=== PATIENT | female | born 1965 | race Caucasian/White ===

== ENCOUNTER → 2017-02-16 | Outpatient (CLI) | payer OTHER ==
--- NOTE | 2017-02-16 16:21 | RADIOLOGY REPORT PS360 ---
US PELVIS-TRANSVAGINAL ONLY HISTORY: Heavy uterine bleeding MENMETRORRHAGIA ORDERING PHYSICIAN: Sharla Wright MD PATIENT AGE: 51 years COMPARISON: None FINDINGS: The uterus is somewhat bulky measuring 8.4 x 5.4 x 5.6 cm with a combined endometrial thickness of 8 mm nabothian cyst is present. No obvious uterine mass. The left ovary is 4 x 3.4 cm and contains a 3 x 2.5 cm cyst. The right ovary is 5. A 5 cm and contains a 5 x 4.4 cm cyst. The cyst do not containing internal septations or thickened cloud. No cul-de-sac fluid evident. IMPRESSION: 1. Bilateral ovarian cysts measuring up to 5 cm on the right and 3 cm on the left. 2. Endometrial thickness upper limits of normal
== END ==
LOC: RAD 13:19
DX: N92.1 Excessive and frequent menstruation with irregular cycle (principal)

== ENCOUNTER → 2017-02-18 | Outpatient (CLI) | payer OTHER | LOC: LAB 11:04 | DX: N92.0 Excessive and frequent menstruation with regular cycle (principal); N85.2 Hypertrophy of uterus ==

== ENCOUNTER 2017-03-22 06:09 | Observation (INO) | payer OTHER ==
[2017-03-22] VITALS (15 sets, daily range): BP systolic 104–163; BP diastolic 53–87
[~2017-03-22] VITALS: Ht 154.9 cm; Wt 113.4 kg
--- OUTSIDE RECORDS SUMMARY | 2017-03-22 06:22 | External Medical Summary Rpt | CCD ---
Author Author , MIGUEL ANGEL Organization MIGUEL ANGEL Address Unknown Phone miguel .Invisible Purpose Continuity of Care Document - 02-18-2017 through 2016 Results Labs Lab Lab Date Result Refere Interp Status Commen Order Detail nces retati t Range on Urinalysis dipstick W Reflex Microscopic panel in Urine (03-21-2017 10:15) Bacteri 2+ O complet a 017 ed [Presen 10:15 ce] in Urine sedimen t by Light microsc opy Erythro OCC 0 complet cytes 017 ed [Presen 10:15 ce] in Urine sedimen t by Light microsc opy Epithel 10-20 0#/hp complet ial 017 f - ed cells.s 10:15 5#/hp quamous f [Presen ce] in Urine sedimen t by Microsc opy high power field Urinalysis dipstick W Reflex Microscopic panel in Urine (03-21-2017 10:15) Appeara SL CLEAR complet nce of 017 CLOUDY ed Urine 10:15 Bilirub NEGATIV NEG complet in 017 E ed [Presen 10:15 ce] in Urine by Test strip Erythro TRACE-L NEG complet cytes 017 YSED ed [Presen 10:15 ce] in Urine Color YELLOW YELLOW complet of 017 ed Urine 10:15 Ketones NEGATIV NEG complet 017 E ed [Presen 10:15 ce] in Urine by Automat ed test strip Mucus NEGATIV NEG complet [Presen 017 E ed ce] in 10:15 Urine sedimen t by Light microsc opy Nitrite NEGATIV NEG complet 017 E ed [Presen 10:15 ce] in Urine by Test strip Urobili 0.2 NEG complet nogen 017 ed [Presen 10:15 ce] in Urine by Test strip
--- OUTSIDE RECORDS SUMMARY | 2017-03-22 06:22 | External Medical Summary Rpt | CCD ---
Author Author [facility] Organization [facility] Address Unknown Phone Unavailable Purpose Continuity of Care Document - through 2016
--- OUTSIDE RECORDS SUMMARY | 2017-03-22 06:22 | External Medical Summary Rpt | CCD ---
Author Author , MIGUEL ANGEL Organization MIGUEL ANGEL Address Unknown Phone [email or web address] Purpose Continuity of Care Document - 02-18-2017 [...]
--- OUTSIDE RECORDS SUMMARY | 2017-03-22 06:22 | External Medical Summary Rpt | CCD ---
Demographics Preferred Language Upper Sorbian Marital Status Unknown Quaker Affiliation Unknown Race Unknown Ethnic Group Unknown Author Author , MIGUEL ANGEL MICHELLE Address Unknown Phone miguel Immunization No patient found.
--- OUTSIDE RECORDS SUMMARY | 2017-03-22 06:22 | External Medical Summary Rpt | CCD ---
Demographics Preferred Language German Marital Status Unknown Episcopalian Affiliation Unknown Race Unknown Ethnic Group Unknown Author Author , MIGUEL ANGEL MICHELLE Address Unknown Phone miguel Immunization No patient found.
--- OUTSIDE RECORDS SUMMARY | 2017-03-22 06:23 | External Medical Summary Rpt ---
Author Author MIGUEL ANGEL Stewart, M[employer]EL ANGEL [employer] Organization [employer] Address Unknown Phone Unavailable Results Comprehensive metabolic 2000 panel in Serum or Plasma Observa Value Referen Units Interpr Notes Date tion ce etation Range Albumin/G 1.1 - 1.8 No Normal No Mar 21 lobulin informati informati 2017 [Mass on in on in 10:15 AM ratio] in source source Serum or data data Plasma Albumin 3.4 - 5.0 gm/dL Normal No Mar 21 [Mass/vol informati 2016 ume] in on in 10:15 AM Serum or source Plasma data Alkaline 46 - 116 U/L Normal No Mar 21 phosphata informati 2017 se on in 10:15 AM [Enzymati source c data activity/ volume] in Serum or Plasma Bilirubin 0.2 - 1.0 mg/dL Normal No Mar 21 .total informati 2016 [Mass/vol on in 10:15 AM ume] in source Serum or data Plasma Urea 7 - 18 mg/dL Normal No Mar 21 nitrogen informati 2017 [Mass/vol on in 10:15 AM ume] in source Serum or data Plasma Calcium 8.5 - mg/dL Low No Mar 21 [Mass/vol 10.1 informati 2016 ume] in on in 10:15 AM Serum or source Plasma data Chloride 98 - 107 mmoL/L Normal No Mar 21 [Moles/vo informati 2016 lume] in on in 10:15 AM Serum or source Plasma data Carbon 21.0 - mmoL/L Normal No Mar 21 dioxide, 32.0 informati 2016 total on in 10:15 AM [Moles/vo source lume] in data Serum or Plasma Creatinin 0.55 - mg/dL Normal No Mar 21 e 1.02 informati 2017 [Mass/vol on in 10:15 AM ume] in source Serum or data Plasma Estimated 59- ML/MIN No REFERENCE Oct 30 informati RANGE: 2017 glomerula on in >60 10:15 AM r source ML/MIN/1. filtratio data 73 SQUARE n rate METERSIf (GF this patient is -A merican, then multiply theresult by 1.210. Globulin 1.3 - 3.2 gm/dL Normal No Mar 21 [Mass/vol informati 2016 ume] in on in 10:15 AM Serum source data Glucose 74 - 106 mg/dL Normal No Mar 21 [Mass/vol informati 2016 ume] in on in 10:15 AM Serum or source Plasma data Potassium 3.5 - 5.1 mmoL/L Normal No Mar 212016 [Moles/vo on in 10:15 AM lume] in source Serum or data Plasma Sodium 136 - 145 mmoL/L Normal No Mar 21 [Moles/vo informati 2016 lume] in on in 10:15 AM Serum or source Plasma data Aspartate 15 - 37 U/L Normal No Mar 212016 aminotran on in 10:15 AM sferase source [Enzymati data c activity/ volume] in Serum or Plasma Alanine 12 - 78 U/L Normal No Mar 21 aminotran 2016 sferase on in 10:15 AM [Enzymati source c data activity/ volume] in Serum or Plasma Protein 6.4 - 8.2 gm/dL Normal No Mar 21 [Mass/vol informati 2016 ume] in on in 10:15 AM Serum or source Plasma data CBC W Auto Differential panel in Blood Observa Value Referen Units Interpr Notes Date tion ce etation Range Basophils 0 - 0.2 K/MM3 Normal No Mar 212016 [#/volume on in 10:15 AM ] in source Blood by data Automated count Basophils 0.1 - 2.0 % Normal No Mar 212016 leukocyte on in 10:15 AM s in source Blood by data Automated count Eosinophi 0.0 - 0.4 K/mm3 Normal No Mar 21 ls ati 2016 [#/volume on in 10:15 AM ] in source Blood by data Automated count Eosinophi 0.1 - % Normal No Mar 21 ls/100 12.0 inform2016 leukocyte on in 10:15 AM s in source Blood by data Automated count Granulocy 1.8 - 7.8 K/mm3 Normal No Mar 21 karo inform2016 [#/volume on in 10:15 AM ] in source Blood by data Automated count Granulocy 37.0 - % Normal No Mar 21 karo/100 80.0 inform2016 leukocyte on in 10:15 AM s in source Blood by data Automated count Hematocri 37.0 - % Normal No Mar 21 t [Volume 47.0 2016 on in 10:15 AM Fraction] source of Blood data Hemoglobi 12.2 - g/dL Normal No Mar 21 n 16.2 informati 2016 [Mass/vol on in 10:15 AM ume] in source Blood data Lymphocyt 0.7 - 4.5 K/mm3 Normal No Mar 21 es 2016 [#/volume on in 10:15 AM ] in source Unspecifi data ed specimen by Automated count Lymphocyt 10 - 50.0 % Normal No Mar 21 es inform2016 [#/volume on in 10:15 AM ] in source Unspecifi data ed specimen by Automated count Erythrocy 27 - 31.2 pg Normal No Mar 21 te mean 2016 corpuscul on in 10:15 AM ar source hemoglobi data n [Entitic mass] Erythrocy 31.8 - g/dl Low No Mar 21 te mean 35.4 2016 corpuscul on in 10:15 AM ar source hemoglobi data n concentra tion [Mass/vol ume] by Automated count Erythrocy 82.2 - fl Normal No Mar 21 te mean 97.8 inform2016 corpuscul on in 10:15 AM ar volume source [Entitic data volume] by Automated count Monocytes 0.1 - 1.0 K/mm3 Normal No Mar 212016 [#/volume on in 10:15 AM ] in source Blood by data Automated count Monocytes 1.7 - 9.3 % Normal No Mar 21 /100 2016 leukocyte on in 10:15 AM s in source Blood by data Automated count Platelet 7.4 - fl Normal No Mar 21 mean 10.4 2016 volume on in 10:15 AM [Entitic source volume] data in Blood by Automated count Platelets 142 - 424 K/mm3 Normal No Mar 212016 [#/volume on in 10:15 AM ] in source Blood data Erythrocy 4.2 - 5.4 M/mm3 Normal No Mar 21 karo inform2016 [#/volume on in 10:15 AM ] in source Amniotic data fluid Erythrocy 11.5 - % Normal No Mar 21 te 17.5 2016 distribut on in 10:15 AM ion width source [Entitic data volume] by Automated count Leukocyte 4.8 - K/MM3 Normal No Feb 30 s 10.8 informati 2017 [#/volume on in 10:15 AM ] in source Blood data Urinalysis dipstick W Reflex Microscopic panel in Urine Observa Value Referen Units Interpr Notes Date tion ce etation Range Appeara SL CLEAR No No No Mar 21 nce of CLOUDY informa informa informa 2017 Urine tion in tion in tion in 10:15 source source source AM data data data Bacteri 2+ O No No No Mar 21 a informa informa informa 2016 [Presen tion in tion in tion in 10:15 ce] in source source source AM Urine data data data sedimen t by Light microsc opy Bilirub NEGATIV NEG No No No Mar 21 in E informa informa informa 2016 [Presen tion in tion in tion in 10:15 ce] in source source source AM Urine data data data by Test strip Erythro TRACE-L NEG No No No Mar 21 cytes YSED informa informa informa 2016 [Presen tion in tion in tion in 10:15 ce] in source source source AM Urine data data data Color YELLOW YELLOW No No No Mar 21 of informa informa informa 2016 Urine tion in tion in tion in 10:15 source source source AM data data data Glucose NEG No No No Mar 21 [Mass/vol informati informati informati 2017 ume] in on in on in on in 10:15 AM Urine by source source source Test data data data strip Ketones NEGATIV NEG mg/dL No No Mar 21 E informa informa 2016 [Presen tion in tion in 10:15 ce] in source source AM Urine data data by Automat ed test strip Mucus NEGATIV NEG No No No Mar 21 [Presen E informa informa informa 2016 ce] in tion in tion in tion in 10:15 Urine source source source AM sedimen data data data t by Light microsc opy Nitrite NEGATIV NEG No No No Mar 21 E informa informa informa 2016 [Presen tion in tion in tion in 10:15 ce] in source source source AM Urine data data data by Test strip pH of 5.0 - 8.5 No Normal No Mar 21 Urine informati informati 2017 on in on in 10:15 AM source source data data Protein NEG mg/dL No No Mar 21 [Mass/vol informati informati 2017 ume] in on in on in 10:15 AM Urine by source source Automated data data test strip Erythro OCC 0 rbc/hpf No No Mar 21 cytes informa informa 2017 [Presen tion in tion in 10:15 ce] in source source AM Urine data data sedimen t by Light microsc opy Specific 1.005 - No Normal No Mar 21 gravity 1.030 informati informati 2017 of Urine on in on in 10:15 AM source source data data Epithel 10-20 0 - 5 #/hpf No No Mar 21 ial informa informa 2017 cells.s tion in tion in 10:15 quamous source source AM data data [Presen ce] in Urine sedimen t by Microsc opy high power field Urobili 0.2 NEG E.U./dL No No Mar 21 nogen informa informa 2016 [Presen tion in tion in 10:15 ce] in source source AM Urine data data by Test strip Leukocyte O wbc/hpf No No Mar 21 s informati informati 2017 [#/volume on in on in 10:15 AM ] in source source Urine data data Urinalysis dipstick W Reflex Microscopic panel in Urine Observa Value Referen Units Interpr Notes Date tion ce etation Range Appeara SL CLEAR No No No Mar 21 nce of CLOUDY informa informa informa 2017 Urine tion in tion in tion in 10:15 source source source AM data data data Bilirub NEGATIV NEG No No No Mar 21 in E informa informa informa 2016 [Presen tion in tion in tion in 10:15 ce] in source source source AM Urine data data data by Test strip Erythro TRACE-L NEG No No No Mar 21 cytes YSED informa informa informa 2016 [Presen tion in tion in tion in 10:15 ce] in source source source AM Urine data data data Color YELLOW YELLOW No No No Mar 21 of informa informa informa 2017 Urine tion in tion in tion in 10:15 source source source AM data data data Glucose NEG No No No Mar 21 [Mass/vol informati informati informati 2017 ume] in on in on in on in 10:15 AM Urine by source source source Test data data data strip Ketones NEGATIV NEG mg/dL No No Mar 21 E informa informa 2016 [Presen tion in tion in 10:15 ce] in source source AM Urine data data by Automat ed test strip Mucus NEGATIV NEG No No No Mar 21 [Presen E informa informa informa 2016 ce] in tion in tion in tion in 10:15 Urine source source source AM sedimen data data data t by Light microsc opy Nitrite NEGATIV NEG No No No Mar 21 E informa informa informa 2016 [Presen tion in tion in tion in 10:15 ce] in source source source AM Urine data data data by Test strip pH of 5.0 - 8.5 No Normal No Mar 21 Urine informati informati 2017 on in on in 10:15 AM source source data data Protein NEG mg/dL No No Mar 21 [Mass/vol informati informati 2017 ume] in on in on in 10:15 AM Urine by source source Automated data data test strip Specific 1.005 - No Normal No Mar 21 gravity 1.030 informati informati 2016 of Urine on in on in 10:15 AM source source data data Urobili 0.2 NEG E.U./dL No No Mar 21 nogen informa informa 2016 [Presen tion in tion in 10:15 ce] in source source AM Urine data data by Test strip Cancer Ag 125 [Units/volume] in Serum or Plasma Observa Value Referen Units Interpr Notes Date tion ce etation Range Cancer Ag 0.0 - U/mL No Nilsa Feb 18 125 38.1 informati ECLIA 2017 [Units/vo on in methodolo 11:06 AM lume] in source gyPerform Serum or data ed at: Plasma CB - [facility] [place] [id number] [place] [id number] Search Engine Optimization Specialist: Miguel Caceres PhD, Phone: [phone]
--- OUTSIDE RECORDS SUMMARY | 2017-03-22 06:23 | External Medical Summary Rpt ---
[...] data ed at: Plasma CB - [facility] [place] [address] [place] [id number] [employer] Sales Representative: Miguel Caceres PhD, Phone: [phone]
--- NOTE | 2017-03-22 08:37 | Operative Note ---
Procedure/Operative Record Date of Procedure: 03/22/17 Referring physician: Dr. Salas Pre-op diagnosis: Dysfunctional uterine bleeding Post-op diagnosis: 1. Dysfunctional uterine bleeding. 2. Bilateral ovarian cysts Procedure performed: Total vaginal hysterectomy, bilateral salpingo-oophorectomy. Surgeon: Mario Gomez Pottery Decoration Designer(s): EMIGDIO Pike Anesthesia: Gen., GRADING MACHINE OPERATOR Gabriela Indications: Dysfunctional uterine bleeding Description of procedure: After the patient was prepped and draped in usual fashion and general anesthesia was administered, examination under anesthesia revealed a boggy anteverted uterus, with no palpable adnexal masses. A weighted speculum was placed within the posterior fourchette of the vagina, and the cervix was grasped with a double -tooth tenaculum, and retracted toward the introitus. The cervix was circumcised with a knife, and the vaginal mucosa was sharply and bluntly dissected free. A posterior colpotomy incision was made with Brandon scissors, and the long lip of the weighted speculum was placed within the posterior peritoneum. The uterosacral ligaments on either side were Nathalia clamped, cut, and Nathalia sutured with #1 Vicryl, as were the cardinal ligaments and uterine vessels. The peritoneum was entered anteriorly with Brandon scissors, and a long right angle retractor was placed within it. The uterus was flipped anteriorly, and the ovarian pedicles were crossclamped and cut, thus removing the boggy uterine specimen. These pedicles were Nathalia sutured, and then free tied with #1 Vicryl. The RIGHT ovary contained a 6 cm thin-walled clear cyst, and the LEFT ovary contained a similar cyst of 4 cm. Each adnexa was grasped with a [place] clamp, and the infundibulopelvic ligament on either side was Nathalia clamped, cut, and Nathalia sutured with #1 Vicryl, thus removing both adnexa. These pedicles were Nathalia sutured with #1 Vicryl, and then free tied with #1 Vicryl. There was no undue bleeding. The posterior vaginal cuff was run and locked with #1 Vicryl, to include the uterosacral ligament pedicles for vaginal support, in a Curiel fashion, to reduce the enterocele. Interior peritoneum was grasped with a long Allis clamp, and closed with a running pursestring suture of 0 Vicryl, and pulled tight. The vaginal cuff was closed with an anteroposterior running locked suture of #1 Vicryl. The urine was clear in the Valdez catheter. The sponge and needle counts correct. The estimated blood loss was 300 mL. The patient tolerated the procedure well, was taken to PACU in excellent condition. EBL (ml): 300 Complications: None Specimens: Uterus, both adnexa. at 0837
--- NOTE | 2017-03-22 08:45 | Anesthesia Record ---
Anesthesia Record Part I Total IV fluids: 1000 EBL (ml): 25 Urine Output: 30 B/P: 138/78 % SaO2: 95 Pulse: 65 Resps: 16 Temp: 97.0 Patient is: Drowsy, Mask O2, Stable Stable to PACU at: 0842 at 0845
--- NOTE | 2017-03-22 08:46 | Anesthesia Record ---
Anesthesia Record Part II Discharge time: 911 Destination: OB PACU nurse assessment review? Yes Patient is: Stable Anesthesia complications? No at 0846
[2017-03-22 09:12] LABS: URINE BILIRUBIN - DIPSTICK NEGATIVE (NEG); URINE BLOOD TRACE-LYSED (NEG)
[2017-03-22 10:42] LABS: HEMOGLOBIN 12.7 g/dL (12.2-16.2)
[2017-03-22] MEDS ORDERED: PRILOSEC OTC20 MG PO (11:21)
[2017-03-22] MEDS ORDERED: XANAX 0.25MG0.25 MG PO (11:22)
[2017-03-22] MEDS ORDERED: NEURONTIN100 MG OR (11:22)
--- NOTE | 2017-03-22 12:10 | PHARMACY CLINIC NOTE ---
Patient Demographics Patient Demographics Admission date: 03/22/17 Date: 03/22/17 Time: 1209 Allergies Coded Allergies: nadolol (From [facility]) (Intermediate, I-HIVES 03/22/17) HEIGHT- FT: 5 IN: 1.00 K.400 VTE General Information Labs: Laboratory Tests 03/22 1000 Hematology Hgb (12.2 - 16.2 g/dL) 12.7 Hct (37.0 - 47.0 %) 41.3 Disclaimer The following section includes nursing documentation that has been pulled in for pharmacy review. Patient's VTE score: 4 Patient's VTE Risk: LOW RISK VTE prophylaxis NQF 0371 VTE prophylaxis ordered? Yes Type of prophylaxis/treatment: ICD, Lovenox at 1207
[2017-03-22 12:45] LABS: URINE BILIRUBIN - DIPSTICK NEGATIVE (NEG); URINE BLOOD NEGATIVE (NEG)
--- NOTE | 2017-03-22 12:53 | ACUTE CARE PROGRESS NOTE (QUA) ---
Progress Notes Subjective Date 03/22/17 Time 1252 Note This is day of surgery. The patient is afebrile. Vital signs stable. Abdomen soft. Pain seems under control. Urine output is good. Impression: Stable. Assessment/Plan This inpt stay is expected to cross 2 MNs from start of care No at 1251
[2017-03-22 13:27] LABS: URINE SQUAMOUS CELLS 20-50 #/hpf (0-5)
[2017-03-23 00:20] VITALS: BP 104/53
[2017-03-23 03:28] VITALS: BP 129/65
--- NOTE | 2017-03-23 05:51 | ACUTE CARE PROGRESS NOTE (QUA) ---
Progress Notes Subjective Date 03/23/17 Time 0550 Note This is postop day number 1. Patient is afebrile. Vital signs stable. Abdomen soft. Urine output good. Hemoglobin 12.7 g. Plan is to discontinue her Valdez and discharge if she voids well. Assessment/Plan This inpt stay is expected to cross 2 MNs from start of care No at 0550
[2017-03-23] MEDS ORDERED: DILAUDID4 MG PO (05:53)
--- NOTE | 2017-03-23 05:57 | DISCHARGE SUMMARY STANDARD ---
Discharge Summary Date of admission: 03/22/17 Date of discharge: 03/23/17 Patient condition: Stable Discharge diagnosis (es): 1. Dysfunctional uterine bleeding. 2. Bilateral ovarian cysts. Hospital course: This 51-year-old white female was admitted for definitive treatment of the above diagnoses. On the date of admission, she was taken to the operating room, where she underwent a total vaginal hysterectomy, with bilateral salpingo-oophorectomy (bilateral adnexal cysts were encountered), without complications. She received Delestrogen 30 mg IM in PACU. Postoperatively, the patient has done well. She is eating and ambulating, and passing flatus. Her abdomen is soft. Her urine output has been good. Her Valdez catheter has been removed. Assuming that she can void well, she will be discharged today. Her hemoglobin is 12.7 g. She is not a smoker. She is given appropriate instructions as to diet and exercise, and she is to return the office in 2 weeks for follow-up. at 4540
[2017-03-23 11:08] VITALS: BP 105/56
== END 2017-03-23 11:15 | disposition home or self-care (01) ==
LOC: SDC 06:09 → OB 06:20 → SDC 06:20 → OB 09:30
PROVIDERS: Obstetrics & Gynecology
PROC: 0UT77ZZ Resection of Bilateral Fallopian Tubes, Via Natural or Artificial Opening (ICD-10-PCS; principal; 2017-03-22 07:30)
PROC: 0UT27ZZ Resection of Bilateral Ovaries, Via Natural or Artificial Opening (ICD-10-PCS; principal; 2017-03-22 07:30)
PROC: 0UT97ZZ Resection of Uterus, Via Natural or Artificial Opening (ICD-10-PCS; principal; 2017-03-22 07:30)
DX: N93.8 Other specified abnormal uterine and vaginal bleeding (principal); N83.202 Unspecified ovarian cyst, left side; N83.201 Unspecified ovarian cyst, right side
CPT/HCPCS: G0378; J0131; J2405; J2710